=== PATIENT | female | born 1970 | race Caucasian/White ===

== ENCOUNTER 2024-04-09 08:57 | Outpatient (REF) | payer BC, SELFPAY ==
--- NOTE | ~2024-04-09 | XR_ITS ---
EXAMINATION: XR SHOULDER RIGHT CLINICAL INFORMATION: Pain in right shoulder M25.511. COMPARISON: None available TECHNIQUE: Neutral AP and transscapular Y views of the right shoulder. FINDINGS: Postsurgical changes noted with suture anchors noted within the proximal humerus. Distal clavicle resection. Mild osteoarthritis of the glenohumeral joint XR/XR shoulder RT min 2V IMPRESSION: 1. Postsurgical changes. 2. Mild osteoarthritis of the glenohumeral joint. Electronically signed by: Augustine Lambert MD 04/27/2024 09:28 AM [facility]
== END 2024-04-09 08:58 | disposition home or self-care (01) ==
LOC: HO.HOSX 08:57
PROVIDERS: Visit Provider Orthopaedic Surgery
DX: M25.511 Pain in right shoulder (principal)
CPT/HCPCS: 73030

== ENCOUNTER 2024-04-09 13:43 | Outpatient (AMB) | payer BC, SELFPAY ==
--- NOTE | 2024-04-09 13:56 | MHC.OFFVIS ---
Vital Signs 04/09/24 14:05 Height 5 ft 5 in Weight 323 lb BMI 53.7 Intake Visit Reasons: Right shoulder pain and weakness Intake Note: Kenna is a 53 year old female who presents with complaints of progressively worsening right shoulder pain and weakness. The patient did undergo right shoulder rotator cuff repair surgery several years ago. She got fairly good relief from that surgery initially. The patient states that she re-injured her right shoulder approximately 1 year ago while lifting a heavy box. The patient felt a ?snap? in her right shoulder at that time. Since that time she has had difficulty lifting her right hand above shoulder height. She has failed the last 6 weeks of conservative treatments which have included physical therapy exercises, Tylenol, anti-inflammatory medicines and topical creams. The patient also underwent left shoulder rotator cuff repair surgery several years ago. She denies any pain in her left shoulder. Medication List - Last Reconciled 04/09/24 by Charles De Los Santos MD atorvastatin 40 mg PO DAILY hydrochlorothiazide mg PO levothyroxine (Levoxyl) 200 mcg PO DAILY Physical Exam Vital Signs: BMI result Body Mass Index 53.7 Const Other: Well-nourished well-developed very friendly female awake alert and oriented x3 in no acute distress Extrem Other: Bilateral upper extremity examination shows good capillary refill, no skin lesions noted, normal sensation light touch Right shoulder examination shows slightly decreased range of motion when compared to her left shoulder, 3/5 strength with supraspinatus testing, positive impingement signs, no instability Results Reviewed Results Reviewed: X-rays of the patient's right shoulder show bony changes consistent with distal clavicle excision and acromioplasty, 2 suture anchors within the proximal humerus with no signs of loosening Assessment & Plan Assessment & Plan (1) Right shoulder pain: Code(s): M25.511 - Pain in right shoulder Category: Medical Plan Ms. Sow presents with recurrent right shoulder pain and weakness most likely due to a recurrent rotator cuff tear. Thus, I will send the patient for an MRI of her right shoulder for further evaluation. I will see her back once the MRI is completed to discuss the findings and treatment options. Feel free to call me at any time should questions regarding her orthopedic management arise. I spent 21 minutes in reviewing the patient's records and imaging studies, seeing the patient and documenting in the medical record. Orders: Orders XR shoulder RT min 2V Today M25.511 - Pain in right shoulder MR shoulder RT wo con Today M25.511 - Pain in right shoulder Coding Level of Care Code New Pt Level 3 (98536) Complex EM visit Add On G2211 Diagnoses Right shoulder pain M25.511
[2024-04-09 14:05] VITALS: BMI 53.7
== END 2024-04-09 14:38 | disposition home or self-care (01) ==
PROVIDERS: PCP Internal Medicine; Visit Provider Orthopaedic Surgery
DX: M25.511 Pain in right shoulder (principal)
CPT/HCPCS: 99203